=== PATIENT | female | born 1925 | race Caucasian/White ===

== ENCOUNTER 2016-09-29 10:15 | Outpatient (RCR) | payer MEDICARE, BC ==
[~2016-09-29 10:15] MED LIST: AMBIEN 5MG TABLE5 MG PO; ATIVAN; BUFFERED ASPIR325 M1 PO; CALTRATE-600 W600 MG PO; CLOPIDOGREL PO; FISH OIL CONC1000 MG PO; FOSAMAX 70MG TA70 MG PO; IMDUR 30MG30 MG/TAB PO; METOPROLOL SUCC25 MG PO; ZOCOR40 MG PO; ZOLOFT50 MG PO
== END 2016-09-29 12:11 | disposition home or self-care (01) ==
LOC: MKS.ESL.PT 10:15
DX: S56.812 Strain of other muscles, fascia and tendons at forearm level, left arm (principal); X58.XXXD Exposure to other specified factors, subsequent encounter
CPT/HCPCS: G8978-GP; G8979-GP; G8980-GP